=== PATIENT | female | born 1990 | race Caucasian/White ===

== ENCOUNTER 2019-01-11 05:45 | Day surgery (SDC) | payer BC, OTHER ==
[~2019-01-11] VITALS: Ht 167.6 cm; Wt 85.1 kg
[2019-01-11 07:02] VITALS: Ht 167.6 cm; Wt 85.1 kg
[2019-01-11] MEDS ORDERED: NO HOME MEDS (07:17)
--- NOTE | 2019-01-11 07:18 | CONS ---
DATE OF ADMISSION: 01/11/2019 DATE OF CONSULTATION: PATIENT NAME: RADHA BECK Dear Dr. Sherwood: I thank you very much for this kind referral. HISTORY OF PRESENT ILLNESS: Ms. Radha Beck is a 28-year-old female patient who has been complainin g of upper abdominal pain not completely responding to therapy. No past history of peptic ulcer dise ase. She is status post H. pylori therapy. Not on nonsteroidal anti-inflammatory agents. She has h istory of gallstones. She does not have any right upper quadrant pain, fever, chills or jaundice. N o history of liver disease. Denies any change in the bowel habit or rectal bleeding. No history of inflammatory bowel disease. Not a hypertensive or diabetic. No heart disease, lung problem or kidne y disease. SOCIAL HISTORY: Nonsmoker. No alcohol abuse. FAMILY HISTORY: No family history of gastrointestinal tract neoplasm. ALLERGIES: NO DRUG ALLERGIES. MEDICATIONS: None. PHYSICAL EXAMINATION: VITAL SIGNS: She is 5 feet 6 inches tall and weighs 186 pounds. HEART: Normal heart sounds. LUNGS: Clear. ABDOMEN: Soft. No masses. Normal bowel sounds. NEUROLOGICAL: Normal neurological exam. IMPRESSION: 1. Upper abdominal pain, not responding to therapy. 2. Status post antibiotic therapy for Helicobacter pylori. 3. History of gallstones. 4. The patient seems to be asymptomatic from gallstones. PLAN: Endoscopic examination for further evaluation. The procedure and possible complications are well explained to the patient, and she understands and c onsents to the procedure. The patient was strongly advised that if she develops any right upper quadrant pain, fever or chills, she will need immediate attention and she will need laparoscopic cholecystectomy. I thank you once again. With warmest personal regards, Dictated By: SUDHIR QUICK MD GD/NTS Conf#: [id number] DID#: [id number] CC: Dr. Sherwood;*EndCC*
[2019-01-11 07:32] VITALS: BP 99/63; PULSE 63; RESP 20
[2019-01-11] MEDS ORDERED: FENTAnyl 50 MCG/ML VIAL ONE (08:13)
[2019-01-11] MEDS ORDERED: MIDAZOLAM 1 MG/ML 2 ML INJ ONE ×2 (08:13)
[2019-01-11 08:20] VITALS: BP 97/61; PULSE 69; RESP 20
== END 2019-01-11 12:42 | disposition home or self-care (01) ==
LOC: GIL 05:45
PROVIDERS: ATTEND Internal Medicine Gastroenterology
DX: K29.50 Unspecified chronic gastritis without bleeding (principal)
CPT/HCPCS: 43239; 84703; 88305; 88312; J2250; J3010; Z7610